=== PATIENT | male | born 1980 | race Caucasian/White ===

== ENCOUNTER → 2017-06-26 | Outpatient (CLI) | payer OTHER ==
[~2017-06-26] MED LIST: ESCI20TA10 PO; FEXO180T72 PO
== END ==
LOC: STAR 14:58
PROVIDERS: ATTEND Otolaryngology
DX: Z02.9 Encounter for administrative examinations, unspecified (principal)

== ENCOUNTER 2017-06-30 08:20 | Day surgery (SDC) | payer OTHER ==
[~2017-06-30] VITALS: Ht 185.4 cm; Wt 98.0 kg
[2017-06-30] MEDS ORDERED: LACTATED RINGERS 1,000 ML IV SCH (08:43)
[2017-06-30] MEDS ORDERED: FENTANYL PF 100 MCG/2ML ONE ×2 (09:26→09:27)
[2017-06-30] MEDS ORDERED: MIDAZOLAM 1 MG/ML, 2ML ONE (09:26)
[2017-06-30] MEDS ORDERED: LIDOCAINE/PF 1%, 30ML ONE (10:20)
[2017-06-30] MEDS ORDERED: EPINEPHRINE TOPICAL SOLN 1 MG/ML, 30ML ONE (10:20)
[2017-06-30] MEDS ORDERED: CIPROFLOXACIN DEXAMETHASONE EAR SUSP 7.5ML ONE (10:20)
[2017-06-30] MEDS ORDERED: EPINEPHRINE 1 MG/ML, 1ML ONE (10:21)
[2017-06-30] MEDS ORDERED: ROCURONIUM 10MG/ML,5ML ONE (10:22)
[2017-06-30] MEDS ORDERED: ONDANSETRON 2MG/ML, 2ML ONE (10:22)
[2017-06-30] MEDS ORDERED: CEFAZOLIN 1,000 MG ONE (10:22)
[2017-06-30] MEDS ORDERED: SUCCINYLCHOLINE 20 MG/ML, 10ML ONE (10:22)
[2017-06-30] MEDS ORDERED: PROPOFOL 10 MG/ML, 20ML ONE (10:22)
[2017-06-30] MEDS ORDERED: DEXAMETHASONE 4 MG/ML, 1ML ONE (10:22)
[2017-06-30] MEDS: EPINEPHRINE 1 MG/ML, 1ML ONE ×2 (11:12→11:23)
[2017-06-30] MEDS ORDERED: ACETAMINOPHEN 650 MG/20.3 ML UDC ONE (12:22)
[2017-06-30] MEDS ORDERED: OXYcodone 5 MG/5 ML ORAL.SOL UDC ONE (12:22)
[2017-06-30] MEDS ORDERED: ACETAMINOPHEN 325 MG TABLET ONE (12:22)
[2017-06-30] MEDS ORDERED: FENTANYL PF 100 MCG/2ML IV PRN (12:30)
[2017-06-30] MEDS ORDERED: ACETAMINOPHEN 325 MG TABLET PO PRN (12:30)
[2017-06-30] MEDS ORDERED: ONDANSETRON 2MG/ML, 2ML IVPush PRN (12:30)
[2017-06-30] MEDS ORDERED: hydrALAzine 20 MG/ML, 1ML IV PRN (12:30)
[2017-06-30] MEDS ORDERED: METOCLOPRAMIDE 5 MG/ML, 2ML IV PRN (12:30)
[2017-06-30] MEDS ORDERED: OXYcodone 5 MG/5 ML ORAL.SOL UDC PO PRN (12:30)
[2017-06-30] MEDS ORDERED: HYDROmorphone 1 MG/ML, 1ML IV PRN (12:30)
[2017-06-30] MEDS ORDERED: LABETALOL 5MG/ML, 20ML IV PRN (12:30)
== END 2017-06-30 13:40 | disposition home or self-care (01) ==
LOC: OUT 08:20
PROVIDERS: ATTEND Otolaryngology
DX: H90.12 Conductive hearing loss, unilateral, left ear, with unrestricted hearing on the contralateral side (principal); H80.92 Unspecified otosclerosis, left ear
CPT/HCPCS: 69662; J0171; J0330; J0690; J1100; J2250; J2405; J2704; J3010; J3490